=== PATIENT | female | born 1975 | race Caucasian/White ===

== ENCOUNTER 2022-01-30 23:19 | Emergency (ER) | payer MEDICAID ==
[~2022-01-30] VITALS: Ht 154.9 cm; Wt 66.0 kg
[2022-01-31 01:16] LABS: BASOPHILS % 2.2 % (0.0-2.0); EOSINOPHILS % 4.4 % (0.0-5.0); HEMATOCRIT. 34.6 % (36.0-48.0); HEMOGLOBIN. 10.6 g/dL (12.0-16.0); LYMPHOCYTES % 12.6 % (20.0-50.0); MEAN CORPUSCULAR HEMOGLOBIN 20.6 pg (28.0-32.0); MEAN CORPUSCULAR VOLUME 67.2 fL (81.0-99.0); MEAN PLATELET VOLUME 7.9 fl (7.4-10.4); MONOCYTES % 7.8 % (2.0-8.0); PLATELET 361 x1000/uL (130-400); RED BLOOD CELL COUNT 5.16 mill/uL (4.2-5.4); RED CELL DISTRIBUTION WIDTH 18.8 % (11.6-14.6)
[2022-01-31 01:25] LABS: CHLORIDE 104 mEq/L (98-107)
[2022-01-31 02:14] LABS: PLATELET ESTIMATE NORMAL
[2022-01-31] MEDS ORDERED: LABETALOL HCL VIAL 20 MG/4 ML VIAL IV ONE (03:30)
[2022-01-31 04:55] LABS: CLARITY URINE CLEAR (CLEAR); COLOR URINE DARK YELLOW (YELLOW); KETONES URINE TRACE (NEGATIVE); LEUKOCYTE ESTERASE URINE 1+ (NEGATIVE); NITRITE URINE NEGATIVE (NEGATIVE); OCCULT BLOOD URINE NEGATIVE (NEGATIVE); PH URINE 5.5 (4.5-8.0); PROTEIN URINE 3+ (NEGATIVE); SPECIFIC GRAVITY URINE 1.028 (1.005-1.030)
[2022-01-31] MEDS ORDERED: FUROSEMIDE 100MG/10ML VIAL IVP NR (05:15)
[2022-01-31 05:20] LABS: *BARBITURATES SCREEN URINE NEGATIVE (NEGATIVE); *BENZODIAZEPINES SCREEN URINE NEGATIVE (NEGATIVE); CANNABINOID URINE SCREEN NEGATIVE (NEGATIVE); METHADONE URINE SCREEN NEGATIVE (NEGATIVE); OPIATES URINE SCREEN NEGATIVE (NEGATIVE); PHENCYCLIDINE URINE SCREEN NEGATIVE (NEGATIVE)
[2022-01-31 05:21] LABS: *AMPHETAMINES SCREEN URINE PRESUMTIVE POSITIVE (NEGATIVE)
[2022-01-31 05:34] VITALS: BP 178/121
[2022-01-31 12:29] LABS: *COCAINE SCREEN URINE NEGATIVE (NEGATIVE)
== END 2022-01-31 05:39 | disposition home or self-care (01) ==
LOC: ER 23:19
DX: R18.8 Other ascites (principal); F10.10 Alcohol abuse, uncomplicated; F15.10 Other stimulant abuse, uncomplicated; Z20.822 Contact with and (suspected) exposure to COVID-19; F17.290 Nicotine dependence, other tobacco product, uncomplicated
CPT/HCPCS: 36415; 71045; 74176; 80053; 80305; 80320; 81003; 83880; 84484; 85025; 87426; 96374; 96375; 99285; C9803; J1940; J3490; G0480

== ENCOUNTER 2022-03-16 11:30 | Inpatient (IN) | payer MEDICAID, OTHER ==
[~2022-03-16] VITALS: Ht 152.4 cm; Wt 61.2 kg
[2022-03-16 12:12] LABS: BASOPHILS % 1.7 % (0.0-2.0); EOSINOPHILS % 0.5 % (0.0-5.0); HEMATOCRIT. 32.7 % (36.0-48.0); HEMOGLOBIN. 10.1 g/dL (12.0-16.0); LYMPHOCYTES % 9.6 % (20.0-50.0); MEAN PLATELET VOLUME 8.8 fl (7.4-10.4); MONOCYTES % 8.3 % (2.0-8.0); NEUTROPHILS % 79.9 % (40.0-76.0); PLATELET 356 x1000/uL (130-400); RED BLOOD CELL COUNT 4.81 mill/uL (4.2-5.4); RED CELL DISTRIBUTION WIDTH 22.6 % (11.6-14.6)
[2022-03-16 12:21] LABS: INR 1.3; PROTHROMBIN TIME 13.3 sec (9.6-11.0)
[2022-03-16 12:23] LABS: CHLORIDE 102 mEq/L (98-107)
[2022-03-16 12:33] LABS: ETHANOL BLOOD < 10 mg/dL
[2022-03-16 12:35] LABS: HCG SCREEN NEGATIVE
[2022-03-16] MEDS ORDERED: LABETALOL 5MG/ML SYR 20 MG/4 ML SYRINGE IV ONE ×2 (13:00→16:15)
[2022-03-16 13:24] LABS: PLATELET ESTIMATE NORMAL
[2022-03-16 15:49] LABS: CLARITY URINE CLEAR (CLEAR); COLOR URINE YELLOW (YELLOW); KETONES URINE NEGATIVE (NEGATIVE); LEUKOCYTE ESTERASE URINE 1+ (NEGATIVE); NITRITE URINE NEGATIVE (NEGATIVE); OCCULT BLOOD URINE TRACE (NEGATIVE); PROTEIN URINE 3+ (NEGATIVE); SPECIFIC GRAVITY URINE 1.019 (1.005-1.030)
[2022-03-16] MEDS ORDERED: CEFTRIAXONE 1 G PREMIX 50 ML IV ONE (16:15)
[2022-03-16] MEDS ORDERED: ONDANSETRON HCL 4MG/2ML INJ IV PRN (17:45)
[2022-03-16] MEDS ORDERED: HYDRALAZINE 20MG/ML VIAL IV NR (17:45)
[2022-03-16] MEDS ORDERED: ACETAMINOPHEN 325MG TABLET PO PRN (17:45)
[2022-03-16] MEDS: FUROSEMIDE 40MG/4ML VIAL IVP SCH (17:50)
[2022-03-16 18:00] VITALS: BP 164/104
[2022-03-16 20:00] VITALS: BP 163/105
[2022-03-16 20:17] LABS: *BARBITURATES SCREEN URINE NEGATIVE (NEGATIVE); *BENZODIAZEPINES SCREEN URINE NEGATIVE (NEGATIVE); *COCAINE SCREEN URINE NEGATIVE (NEGATIVE); CANNABINOID URINE SCREEN NEGATIVE (NEGATIVE); METHADONE URINE SCREEN NEGATIVE (NEGATIVE); OPIATES URINE SCREEN NEGATIVE (NEGATIVE); PHENCYCLIDINE URINE SCREEN NEGATIVE (NEGATIVE)
[2022-03-16 20:26] LABS: *AMPHETAMINES SCREEN URINE PRESUMTIVE POSITIVE (NEGATIVE)
[2022-03-16] MEDS ORDERED: NALOXONE HCL 0.4MG/ML VIAL IV PRN (20:45)
[2022-03-16] MEDS: CLONIDINE 0.1MG TABLET PO PRN (21:11)
[2022-03-16] MEDS: HYDRALAZINE HCL 100MG TABLET PO SCH (21:12)
[2022-03-17] VITALS: BP 170/100
[2022-03-17] MEDS: CLONIDINE 0.1MG TABLET PO PRN (03:18)
[2022-03-17 04:00] VITALS: BP 172/104
[2022-03-17] MEDS: HYDRALAZINE HCL 100MG TABLET PO SCH ×2 (05:17→13:41)
[2022-03-17 08:00] VITALS: BP 154/95
[2022-03-17] MEDS: FUROSEMIDE 40MG/4ML VIAL IVP SCH ×2 (08:28→19:43)
[2022-03-17] MEDS: AMLODIPINE 10MG TABLET PO SCH ×2 (08:28→09:00)
[2022-03-17 12:00] VITALS: BP 146/84
[2022-03-17 16:00] VITALS: BP 140/80
[2022-03-17] MEDS ORDERED: METOLAZONE 2.5MG TABLET PO NR (16:15)
[2022-03-17 20:00] VITALS: BP 157/87
[2022-03-18] VITALS: BP 126/71
[2022-03-18 00:05] LABS: HEPATITIS B SURFACE ANTIGEN NEGATIVE
[2022-03-18 04:00] VITALS: BP 157/86
[2022-03-18] MEDS: HYDRALAZINE HCL 100MG TABLET PO SCH ×3 (06:00→21:39)
[2022-03-18] MEDS ORDERED: LIDOCAINE HCL 1% 10 MG/ML 10ML VIAL ONE (08:01)
[2022-03-18] MEDS ORDERED: SODIUM BICARBONATE 4% (2.4MEQ) 5ML VIAL IV ONE (08:01)
[2022-03-18] MEDS: AMLODIPINE 10MG TABLET PO SCH (11:05)
[2022-03-18] MEDS: FUROSEMIDE 40MG/4ML VIAL IVP SCH ×2 (11:05→17:07)
[2022-03-18 12:00] VITALS: BP 154/97
[2022-03-18 16:00] VITALS: BP 151/74
[2022-03-18 17:12] LABS: CHLORIDE 95 mEq/L (98-107)
[2022-03-18] MEDS: HYDROCODONE/ACETAMINOPHEN 5/325MG TABLET PO PRN (17:12)
[2022-03-18 17:21] LABS: HEMATOCRIT. 34.8 % (36.0-48.0); HEMOGLOBIN. 10.7 g/dL (12.0-16.0); MEAN CORPUSCULAR HEMOGLOBIN 20.9 pg (28.0-32.0); MEAN PLATELET VOLUME 7.9 fl (7.4-10.4); PLATELET 419 x1000/uL (130-400); RED BLOOD CELL COUNT 5.12 mill/uL (4.2-5.4); RED CELL DISTRIBUTION WIDTH 23.4 % (11.6-14.6)
[2022-03-18 20:00] VITALS: BP 145/77
[2022-03-18 23:13] LABS: PLATELET ESTIMATE INCREASED
[2022-03-19] VITALS: BP 148/89
[2022-03-19] MEDS: HYDROCODONE/ACETAMINOPHEN 5/325MG TABLET PO PRN ×2 (03:06→23:10)
[2022-03-19 04:00] VITALS: BP 144/93
[2022-03-19] MEDS: HYDRALAZINE HCL 100MG TABLET PO SCH ×3 (06:39→21:33)
[2022-03-19 08:00] VITALS: BP 161/103
[2022-03-19] MEDS ORDERED: POTASSIUM CHLORIDE 20MEQ TABLET SR PO SCH (08:45)
[2022-03-19] MEDS: AMLODIPINE 10MG TABLET PO SCH (09:12)
[2022-03-19] MEDS: FUROSEMIDE 40MG/4ML VIAL IVP SCH ×2 (09:13→18:32)
[2022-03-19 12:00] VITALS: BP 132/83
[2022-03-19 12:54] LABS: CHLORIDE 91 mEq/L (98-107)
[2022-03-19] MEDS ORDERED: METOLAZONE 2.5MG TABLET PO NR (14:30)
[2022-03-19 16:00] VITALS: BP 147/68
[2022-03-19 20:00] VITALS: BP 145/84
[2022-03-20] VITALS: BP 140/79
[2022-03-20 04:00] VITALS: BP 152/89
[2022-03-20] MEDS: HYDRALAZINE HCL 100MG TABLET PO SCH ×2 (05:46→13:29)
[2022-03-20 08:00] VITALS: BP 143/72
[2022-03-20] MEDS ORDERED: POTASSIUM CHLORIDE 20MEQ TABLET SR PO SCH (08:00)
[2022-03-20] MEDS: AMLODIPINE 10MG TABLET PO SCH (08:28)
[2022-03-20] MEDS: FUROSEMIDE 40MG/4ML VIAL IVP SCH (08:29)
[2022-03-20] MEDS ORDERED: AMLO10TA80 PO (09:37)
[2022-03-20] MEDS ORDERED: FURO-151 MT (09:37)
[2022-03-20] MEDS ORDERED: POTA-205 MT (09:37)
[2022-03-20] MEDS ORDERED: HYDR100T26 PO (09:37)
[2022-03-20 12:00] VITALS: BP 135/78
[2022-03-20 13:47] VITALS: BP 135/78
== END 2022-03-20 14:00 | disposition home or self-care (01) ==
LOC: ER 11:30 → EDBEDREQ 14:28 → 7WST 16:22 → EDBEDREQ 16:28 → ENRESERV 16:37
PROVIDERS: ADMIT Internal Medicine; ATTEND Internal Medicine
PROC: 0W9G3ZZ Drainage of Peritoneal Cavity, Percutaneous Approach (ICD-10-PCS; principal; 2022-03-18)
DX: K74.60 Unspecified cirrhosis of liver (principal); R18.8 Other ascites; E44.0 Moderate protein-calorie malnutrition; E87.1 Hypo-osmolality and hyponatremia; L03.115 Cellulitis of right lower limb; D64.9 Anemia, unspecified; E66.9 Obesity, unspecified; F15.90 Other stimulant use, unspecified, uncomplicated; I10 Essential (primary) hypertension; F10.20 Alcohol dependence, uncomplicated; F17.210 Nicotine dependence, cigarettes, uncomplicated; Z20.822 Contact with and (suspected) exposure to COVID-19; Z60.2 Problems related to living alone; Z71.51 Drug abuse counseling and surveillance of drug abuser; Z68.26 Body mass index [BMI] 26.0-26.9, adult
CPT/HCPCS: 36415; 49083; 71045; 74176; 76700; 80048; 80053; 80305; 80320; 81003; 83605; 83880; 84484; 84703; 85025; 86705; 86709; 86803; 87340; 87426; 93005; 93306; 97161; 99285; C9803; J0360; J0696; J1940; J3490; G0480

== ENCOUNTER 2022-03-23 01:58 | Emergency (ER) | payer OTHER ==
[~2022-03-23] VITALS: Ht 167.6 cm; Wt 70.0 kg
[~2022-03-23 01:58] MED LIST: AMLO10TA80 PO; FURO-151 MT; HYDR100T26 PO; POTA-205 MT
[2022-03-23 03:15] LABS: EOSINOPHILS % 3.5 % (0.0-5.0); HEMATOCRIT. 28.6 % (36.0-48.0); HEMOGLOBIN. 8.9 g/dL (12.0-16.0); LYMPHOCYTES % 9.2 % (20.0-50.0); MEAN CORPUSCULAR HEMOGLOBIN 20.9 pg (28.0-32.0); MEAN CORPUSCULAR VOLUME 67.2 fL (81.0-99.0); MEAN PLATELET VOLUME 6.9 fl (7.4-10.4); MONOCYTES % 7.8 % (2.0-8.0); NEUTROPHILS % 78.5 % (40.0-76.0); PLATELET 319 x1000/uL (130-400); RED BLOOD CELL COUNT 4.25 mill/uL (4.2-5.4); RED CELL DISTRIBUTION WIDTH 23.5 % (11.6-14.6)
[2022-03-23 03:28] LABS: CHLORIDE 100 mEq/L (98-107)
[2022-03-23 03:36] LABS: ETHANOL BLOOD < 10 mg/dL
[2022-03-23] MEDS ORDERED: POTASSIUM CHLORIDE 20MEQ TABLET SR PO NR (04:45)
[2022-03-23 06:13] VITALS: BP 138/81
== END 2022-03-23 06:14 | disposition home or self-care (01) ==
LOC: ER 01:58
DX: R18.8 Other ascites (principal); F15.10 Other stimulant abuse, uncomplicated; K70.9 Alcoholic liver disease, unspecified; F10.21 Alcohol dependence, in remission
CPT/HCPCS: 36415; 71045; 80053; 80320; 85025; 99285; G0480